=== PATIENT | male | born 1940 | race Caucasian/White ===

== ENCOUNTER 2018-05-20 15:24 | Emergency (ER) | payer MEDICARE ==
[2018-05-20] MEDS ORDERED: diltiaZEM INJ 5 MG/ML VIAL IVP STA (15:41)
--- NOTE | 2018-05-20 15:44 | ED Physician Documentation ---
PD HPI CHEST PAIN - Stated complaint Stated Complaint: FAST HEART - Chief complaint Chief Complaint: Cardiac - History obtained from History obtained from: Patient - History of Present Illness Timing - onset: Other (He has a remote history of atrial fibrillation. Starting 3-4 days ago he has been having rapid heartbeat and he feels fatigued with some chest and neck pressure but no shortness of breath or pedal edema. He was seen at onset in the [place] and prescribed metoprolol and given a referral to Dr. Bejarano in [place], he has an appointment on the . The metoprolol has not been helpful for his symptoms.) Review of Systems Constitutional: reports: Fatigue. denies: Fever, Chills Nose: denies: Rhinorrhea / runny nose, Congestion Cardiac: reports: Chest pain / pressure, Palpitations. denies: Pedal edema, Calf pain Respiratory: denies: Dyspnea, Cough PD PAST MEDICAL HISTORY - Past Medical History Cardiovascular: High cholesterol, [place] : Benign prostate hypertrophy - Past Surgical History Past Surgical History: Yes Ortho: Knee replacement - Present Medications Home Medications: Ambulatory Orders Medication Instructions Recorded Confirmed Aspirin [Aspir 81] 81 mg PO DAILY 03/05/14 03/05/14 Metoprolol Tartrate 05/20/18 Rivaroxaban [Xarelto] 20 mg PO DAILY #30 tablet 05/20/18 diltiaZEM CD [Cardizem Cd] 180 mg PO DAILY #30 capsule 05/20/18 - Allergies Allergies/Adverse Reactions: Allergies Allergy/AdvReac Type Severity Reaction Status Date / Time No Known Drug Allergies Allergy Verified 05/20/18 15:33 - Social History Does the pt smoke?: No Smoking Status: Former smoker Does the pt drink ETOH?: Yes Does the pt have substance abuse?: No - Family History Family history: reports: Non contributory - POLST Patient has POLST: No PD ED PE NORMAL - Vitals Vital signs reviewed: Yes - General General: Alert and oriented X 3, No acute distress - HEENT HEENT: PERRL, EOMI - Neck Neck: Supple, no meningeal sign, No bony TTP - Cardiac Cardiac: Other (Rapid and irregular) - Respiratory Respiratory: No respiratory distress, Clear bilaterally - Abdomen Abdomen: Non tender - Back Back: No CVA TTP, No spinal TTP - Derm Derm: Normal color, Warm and dry - Neuro Neuro: Alert and oriented X 3, Normal speech - Psych Psych: Normal mood, Normal affect Results - Vitals Vitals: Vital Signs - 24 hr 05/20/18 05/20/18 05/20/18 15:29 15:51 15:58 Temperature 37.2 C Heart Rate 130 H 135 H 110 H Respiratory 14 17 16 Rate Blood Pressure 165/115 H 105/90 H 126/81 H O2 Saturation 100 98 126 H Oxygen O2 Source Room air - EKG (time done) 1531 Rate: Rate (enter#) (116) Rhythm: Atrial flutter, Atrial fibrillation [place]: Normal QRS: Normal Ischemia: Non specific changes Computer interpretation: Agree with computer - Labs Labs: Laboratory Tests 05/20/18 05/20/18 05/20/18 15:47 15:47 15:47 WBC 7.8 RBC 4.55 L Hgb 15.3 Hct 45.8 MCV 100.8 H MCH 33.6 H MCHC 33.3 RDW 13.3 Plt Count 199 MPV 9.6 Neut # (Auto) 4.4 Lymph # (Auto) 2.4 [place] # (Auto) 0.9 Eos # (Auto) 0.1 Baso # (Auto) 0.1 Absolute Nucleated RBC 0.00 Nucleated RBC % 0.0 Sodium 137 Potassium 4.6 Chloride 106 Carbon Dioxide 21 Anion Gap 10.0 BUN 20 Creatinine 1.0 Estimated GFR (MDRD) 72 L Glucose 108 H Calcium 9.0 Magnesium 2.3 Total Bilirubin 0.7 AST 26 ALT 18 Alkaline Phosphatase 51 Troponin I < 0.04 Total Protein 7.6 Albumin 4.1 Globulin 3.5 Albumin/Globulin Ratio 1.2 Lipase 32 TSH 05/20/18 15:47 WBC RBC Hgb Hct MCV MCH MCHC RDW Plt Count MPV Neut # (Auto) Lymph # (Auto) [place] # (Auto) Eos # (Auto) Baso # (Auto) Absolute Nucleated RBC Nucleated RBC % Sodium Potassium Chloride Carbon Dioxide Anion Gap BUN Creatinine Estimated GFR (MDRD) Glucose Calcium Magnesium Total Bilirubin AST ALT Alkaline Phosphatase Troponin I Total Protein Albumin Globulin Albumin/Globulin Ratio Lipase TSH 1.85 PD MEDICAL DECISION MAKING - ED course ED course: 77-year-old gentleman presents with rapid and symptomatic atrial fibrillation. He was started on metoprolol a few days ago in the clinic which is not been helpful. He is not anticoagulated except for aspirin and therefore without AMAURI would probably not be considered safe to pursue right primary rhythm control. He was administered diltiazem IV. Echo from January 2015 on the chart was reviewed, normal systolic function with an EF of 55%. Mild to moderate MR, mild with trace AR. Aortic valve area 1.5 cm. After the administration of 10 mg of diltiazem IV his heart rate was about 80 and he was feeling better without hypotension. Case discussed by phone with Dr. Dao Sanchez, cardiology in [place] who agreed with starting Xarelto and Cardizem and they will see him in the clinic. Departure - Departure Disposition: Home, Self Care Clinical Impression: Atrial fibrillation Qualifiers: Atrial fibrillation type: paroxysmal Qualified Code(s): I48.0 - Paroxysmal atrial fibrillation Condition: Good Record reviewed to determine appropriate education?: Yes Instructions: Atrial Fibrillation Dc Prescriptions: diltiaZEM CD [Cardizem Cd] 180 mg PO DAILY #30 capsule Rivaroxaban [Xarelto] 20 mg PO DAILY #30 tablet Comments: Return for new or worsening symptoms. Follow-up with a lap cutter truer operator in [place] as scheduled. I would recommend not eating or drinking after midnight the night prior in case they decide that a procedure is warranted on that date.
[2018-05-20 15:56] LABS: BASOPHILS # (AUTO) 0.1 10^3/uL (0.0-0.1); BASOPHILS % (AUTO) 1.1 %; EOSINOPHILS # (AUTO) 0.1 10^3/uL (0.0-0.7); HGB - HEMOGLOBIN 15.3 g/dL (14.0-18.0); LYMPHOCYTES # (AUTO) 2.4 10^3/uL (1.5-3.5); LYMPHOCYTES % (AUTO) 31.2 %; MEAN CORPUSCULAR HEMOGLOBIN 33.6 pg (27.0-31.0); MEAN CORPUSCULAR HGB CONC 33.3 g/dL (32.0-36.0); MEAN CORPUSCULAR VOLUME 100.8 fL (80.0-94.0); MEAN PLATELET VOLUME 9.6 fL (7.4-11.4); MONOCYTES # (AUTO) 0.9 10^3/uL (0.0-1.0); MONOCYTES % (AUTO) 11.1 %; NEUTROPHILS # (AUTO) 4.4 10^3/uL (1.5-6.6); NEUTROPHILS % (AUTO) 55.6 %; PLT - PLATELET COUNT 199 10^3/uL (130-450); RED BLOOD COUNT 4.55 10^6/uL (4.70-6.10); RED CELL DISTRIBUTION WIDTH 13.3 % (12.0-15.0); WHITE BLOOD COUNT 7.8 x10^3/uL (4.8-10.8)
[2018-05-20 16:14] LABS: ALBUMIN 4.1 g/dL (3.2-5.5); ALBUMIN/GLOBULIN RATIO 1.2 (1.0-2.2); BILIRUBIN,TOTAL 0.7 mg/dL (0.2-1.0); MAGNESIUM 2.3 mg/dL (1.7-2.8); TOTAL PROTEIN 7.6 g/dL (6.7-8.2)
[2018-05-20 16:52] VITALS: BP 125/98
== END 2018-05-20 16:58 | disposition home or self-care (01) ==
LOC: ED 15:24
DX: I48.0 Paroxysmal atrial fibrillation (principal); Z79.82 Long term (current) use of aspirin; Z86.79 Personal history of other diseases of the circulatory system; Z87.891 Personal history of nicotine dependence
CPT/HCPCS: 36415; 80053; 83690; 83735; 84443; 84484; 85025; 93005; 96374; 99283; 99284

== ENCOUNTER 2019-03-17 10:34 | Outpatient (CLI) | payer MEDICARE ==
[2019-03-17 18:55] LABS: BASOPHILS # (AUTO) 0.1 10^3/uL (0.0-0.1); BASOPHILS % (AUTO) 0.9 %; EOSINOPHILS # (AUTO) 0.2 10^3/uL (0.0-0.7); EOSINOPHILS % (AUTO) 2.2 %; HGB - HEMOGLOBIN 9.7 g/dL (14.0-18.0); LYMPHOCYTES # (AUTO) 1.4 10^3/uL (1.5-3.5); LYMPHOCYTES % (AUTO) 21.1 %; MEAN CORPUSCULAR HEMOGLOBIN 29.6 pg (27.0-31.0); MEAN CORPUSCULAR HGB CONC 31.3 g/dL (32.0-36.0); MEAN CORPUSCULAR VOLUME 94.5 fL (80.0-94.0); MEAN PLATELET VOLUME 11.6 fL (7.4-11.4); MONOCYTES # (AUTO) 0.9 10^3/uL (0.0-1.0); MONOCYTES % (AUTO) 13.5 %; NEUTROPHILS # (AUTO) 4.3 10^3/uL (1.5-6.6); NEUTROPHILS % (AUTO) 62.2 %; PLT - PLATELET COUNT 264 10^3/uL (130-450); RED BLOOD COUNT 3.28 10^6/uL (4.70-6.10); RED CELL DISTRIBUTION WIDTH 15.3 % (12.0-15.0); WHITE BLOOD COUNT 6.8 x10^3/uL (4.8-10.8)
[2019-03-17 19:38] LABS: ALBUMIN 4.4 g/dL (3.2-5.5); ALBUMIN/GLOBULIN RATIO 1.5 (1.0-2.2); ALKALINE PHOSPHATASE 50 IU/L (42-121); ALT ALANINE AMINOTRANSFERASE 21 IU/L (10-60); AST ASPARTATE AMINOTRANSFERASE 26 IU/L (10-42); BILIRUBIN,TOTAL 0.6 mg/dL (0.2-1.0); BUN - BLOOD UREA NITROGEN 18 mg/dL (6-20); CALCIUM 9.3 mg/dL (8.5-10.3); CARBON DIOXIDE - CO2 29 mmol/L (21-32); CHLORIDE 106 mmol/L (101-111); CHOL/HDL RATIO 3.5 (<5.0); CHOLESTEROL 218 mg/dL; CREATININE 1.1 mg/dL (0.6-1.2); GFR - MDRD 65 (>89); GLUCOSE 106 mg/dL (70-100); HDL CHOLESTEROL 62 mg/dL; LDL CHOLESTEROL,CALCULATED 142 mg/dL; LDL/HDL RATIO 2.3 (<3.6); SODIUM 141 mmol/L (135-145); TOTAL PROTEIN 7.4 g/dL (6.7-8.2); VLDL CHOLESTEROL 14 mg/dL
== END 2019-03-17 10:35 | disposition home or self-care (01) ==
LOC: LAB.S 10:34
PROVIDERS: ATTEND Internal Medicine
DX: E78.5 Hyperlipidemia, unspecified (principal); Z79.01 Long term (current) use of anticoagulants; I48.0 Paroxysmal atrial fibrillation
CPT/HCPCS: 36415; 80053; 80061; 83721; 85025

== ENCOUNTER 2019-03-24 11:23 | Outpatient (CLI) | payer MEDICARE ==
[2019-03-24 17:51] LABS: ABSOLUTE RETICS # AUTO 0.087 10^6/uL (0.020-0.110); BASOPHILS # (AUTO) 0.1 10^3/uL (0.0-0.1); BASOPHILS % (AUTO) 0.8 %; EOSINOPHILS # (AUTO) 0.2 10^3/uL (0.0-0.7); EOSINOPHILS % (AUTO) 2.6 %; HGB - HEMOGLOBIN 9.5 g/dL (14.0-18.0); LYMPHOCYTES # (AUTO) 1.9 10^3/uL (1.5-3.5); LYMPHOCYTES % (AUTO) 24.3 %; MEAN CORPUSCULAR HEMOGLOBIN 28.4 pg (27.0-31.0); MEAN CORPUSCULAR HGB CONC 30.5 g/dL (32.0-36.0); MEAN CORPUSCULAR VOLUME 92.8 fL (80.0-94.0); MEAN PLATELET VOLUME 11.3 fL (7.4-11.4); MONOCYTES # (AUTO) 0.9 10^3/uL (0.0-1.0); MONOCYTES % (AUTO) 11.3 %; NEUTROPHILS # (AUTO) 4.6 10^3/uL (1.5-6.6); NEUTROPHILS % (AUTO) 60.6 %; PLT - PLATELET COUNT 277 10^3/uL (130-450); RED BLOOD COUNT 3.35 10^6/uL (4.70-6.10); RED CELL DISTRIBUTION WIDTH 15.2 % (12.0-15.0); WHITE BLOOD COUNT 7.6 x10^3/uL (4.8-10.8)
[2019-03-24 18:39] LABS: FERRITIN 8.7 ng/mL (23.9-336.2)
[2019-03-24 18:42] LABS: FOLATE 19.31 ng/mL (5.90 - >24.8)
[2019-03-24 18:44] LABS: % IRON SATURATION 4 % (20-50); IRON 20 ug/dL (45-182); TOTAL IRON BINDING CAPACITY 465 ug/dL (250-450); TRANSFERRIN 332 mg/dL (180-329)
== END 2019-03-24 11:24 | disposition home or self-care (01) ==
LOC: LAB.S 11:23
PROVIDERS: ATTEND Internal Medicine
DX: D64.9 Anemia, unspecified (principal)
CPT/HCPCS: 36415; 82607; 82728; 82746; 83540; 84466; 85025; 85045

== ENCOUNTER 2019-06-16 14:03 | Outpatient (CLI) | payer MEDICARE ==
[2019-06-16 17:45] LABS: BASOPHILS # (AUTO) 0.1 10^3/uL (0.0-0.1); BASOPHILS % (AUTO) 0.6 %; EOSINOPHILS # (AUTO) 0.2 10^3/uL (0.0-0.7); EOSINOPHILS % (AUTO) 2.1 %; HGB - HEMOGLOBIN 13.2 g/dL (14.0-18.0); LYMPHOCYTES # (AUTO) 2.4 10^3/uL (1.5-3.5); LYMPHOCYTES % (AUTO) 28.1 %; MEAN CORPUSCULAR HEMOGLOBIN 30.6 pg (27.0-31.0); MEAN CORPUSCULAR HGB CONC 31.4 g/dL (32.0-36.0); MEAN CORPUSCULAR VOLUME 97.5 fL (80.0-94.0); MEAN PLATELET VOLUME 11.5 fL (7.4-11.4); MONOCYTES # (AUTO) 0.9 10^3/uL (0.0-1.0); MONOCYTES % (AUTO) 10.3 %; NEUTROPHILS # (AUTO) 5.1 10^3/uL (1.5-6.6); NEUTROPHILS % (AUTO) 58.6 %; PLT - PLATELET COUNT 234 10^3/uL (130-450); RED BLOOD COUNT 4.32 10^6/uL (4.70-6.10); RED CELL DISTRIBUTION WIDTH 15.9 % (12.0-15.0); WHITE BLOOD COUNT 8.6 x10^3/uL (4.8-10.8)
[2019-06-16 18:53] LABS: % IRON SATURATION 17 % (20-50); IRON 64 ug/dL (45-182); TOTAL IRON BINDING CAPACITY 378 ug/dL (250-450); TRANSFERRIN 270 mg/dL (180-329)
== END 2019-06-16 14:04 | disposition home or self-care (01) ==
LOC: LAB.S 14:03
PROVIDERS: ATTEND Internal Medicine Gastroenterology
DX: D50.9 Iron deficiency anemia, unspecified (principal)
CPT/HCPCS: 36415; 82728; 83540; 84466; 85025

== ENCOUNTER 2020-10-07 11:03 | Outpatient (CLI) | payer MEDICARE ==
[2020-10-07 15:10] LABS: BASOPHILS # (AUTO) 0.1 10^3/uL (0.0-0.1); BASOPHILS % (AUTO) 0.7 %; EOSINOPHILS # (AUTO) 0.2 10^3/uL (0.0-0.7); EOSINOPHILS % (AUTO) 2.1 %; HCT - HEMATOCRIT 37.2 % (42.0-52.0); HGB - HEMOGLOBIN 11.2 g/dL (14.0-18.0); LYMPHOCYTES # (AUTO) 1.6 10^3/uL (1.5-3.5); LYMPHOCYTES % (AUTO) 21.6 %; MEAN CORPUSCULAR HEMOGLOBIN 28.1 pg (27.0-31.0); MEAN CORPUSCULAR HGB CONC 30.1 g/dL (32.0-36.0); MEAN CORPUSCULAR VOLUME 93.2 fL (80.0-94.0); MEAN PLATELET VOLUME 11.9 fL (7.4-11.4); MONOCYTES # (AUTO) 0.6 10^3/uL (0.0-1.0); MONOCYTES % (AUTO) 8.6 %; NEUTROPHILS # (AUTO) 4.8 10^3/uL (1.5-6.6); NEUTROPHILS % (AUTO) 66.7 %; PLT - PLATELET COUNT 279 10^3/uL (130-450); RED BLOOD COUNT 3.99 10^6/uL (4.70-6.10); RED CELL DISTRIBUTION WIDTH 17.7 % (12.0-15.0); WHITE BLOOD COUNT 7.2 x10^3/uL (4.8-10.8)
[2020-10-07 15:38] LABS: ALBUMIN 4.5 g/dL (3.2-5.5); ALBUMIN/GLOBULIN RATIO 1.4 (1.0-2.2); BILIRUBIN,TOTAL 0.8 mg/dL (0.2-1.0); CALCIUM 9.4 mg/dL (8.5-10.3); CREATININE 1.4 mg/dL (0.6-1.2); POTASSIUM 4.1 mmol/L (3.5-5.0); TOTAL PROTEIN 7.7 g/dL (6.7-8.2)
== END 2020-10-07 11:04 | disposition home or self-care (01) ==
LOC: LAB.S 11:03
PROVIDERS: ATTEND Internal Medicine
DX: D50.9 Iron deficiency anemia, unspecified (principal); E78.5 Hyperlipidemia, unspecified
CPT/HCPCS: 36415; 80053; 82728; 85025

== ENCOUNTER 2020-10-21 16:41 | Outpatient (CLI) | payer MEDICARE | END 2020-10-21 16:42 | disposition home or self-care (01) | LOC: COV 16:41 | PROVIDERS: ATTEND Internal Medicine Cardiovascular Disease | DX: Z01.812 Encounter for preprocedural laboratory examination (principal); Z20.822 Contact with and (suspected) exposure to COVID-19 ==

== ENCOUNTER 2020-11-20 08:09 | Emergency (ER) | payer MEDICARE ==
[2020-11-20] MEDS ORDERED: SODIUM CHLORIDE 0.9% 1,000 ML IV STA (09:29)
--- NOTE | 2020-11-20 09:34 | ED Physician Documentation ---
PD HPI LOWER EXT INJURY - Stated complaint Stated Complaint: CONVULSIONS/GLF/LT FOOT INJ - Chief complaint Chief Complaint: Ext Problem - History obtained from History obtained from: Patient, Family - History of Present Illness PD HPI LOW EXT INJURY LOCATION: Left, Lower leg, Ankle Type of injury: Fall, Twist Where injury occurred: Home Timing - onset: Today Timing - duration: Minutes Timing - details: Abrupt onset, Still present Improved by: Rest, Immobilization Worsened by: Moving, Palpating Associated symptoms: Swelling. No: Weakness, Numbness, Tingling, Discolored Contributing factors: Anticoagulated Similar symptoms before: Has not had sx before Recently seen: Other - Additional information Additional information: 80-year-old male who has begun to have some problems with his heart has developed atrial fibrillation he was seen in a hospital in [facility] at the beginning of October hospitalized with failure and A. fib with RVR. He is on Eliquis and amiodarone and yesterday he went into [facility] to have a CT scan done in preparation for placement of an aortic valve for aortic stenosis. The patient was in his home this morning when he had choreal choreiform movements of his upper and lower extremities and fell to the ground. He said this lasted about a minute and was not associated with loss of consciousness. He describes the flailing of his arms and not rhythmic contractions. He denies chills he denies fever.He has not had any new medications. He did spend the day down at [facility] yesterday. He has been urinating more than usual. He states he believes this is because he was drinking more water yesterday. Review of Systems Constitutional: denies: Fever Eyes: denies: Decreased vision Ears: denies: Ear pain Nose: denies: Congestion Throat: denies: Sore throat Cardiac: denies: Chest pain / pressure, Palpitations Respiratory: denies: Dyspnea, Cough GI: denies: Abdominal Pain, Nausea, Constipation, Diarrhea : reports: Frequency. denies: Dysuria Skin: denies: Rash Musculoskeletal: reports: Extremity pain, Joint pain, Extremity swelling, Joint swelling, Pain with weight bearing. denies: Neck pain, Back pain Neurologic: denies: Generalized weakness, Focal weakness, Numbness PD PAST MEDICAL HISTORY - Past Medical History Past Medical History: Yes Cardiovascular: High cholesterol, Coronary artery disease, [place], Atrial fibrillation, Valve disorder Respiratory: None Neuro: None Endocrine/Autoimmune: None GI: GERD : Benign prostate hypertrophy HEENT: Chronic hearing loss Psych: None Musculoskeletal: Chronic back pain Derm: None - Past Surgical History Past Surgical History: Yes Ortho: Knee replacement, Spine surgery - Present Medications Home Medications: Ambulatory Orders Medication Instructions Recorded Confirmed Amiodarone [Pacerone] 200 mg PO DAILY 11/20/20 11/20/20 Apixaban [Eliquis] 2.5 mg PO BID 11/20/20 11/20/20 Atorvastatin Calcium 40 mg PO HS 11/20/20 11/20/20 Clopidogrel [Plavix] 75 mg PO DAILY 11/20/20 11/20/20 Ferrous Sulfate 325 mg PO DAILY 11/20/20 11/20/20 Furosemide [Lasix] 20 mg PO DAILY 11/20/20 11/20/20 HYDROcod/ACETAM 5/325 [[place] 5/325] 1 - 2 tablet PO Q6H PRN #14 tablet 11/20/20 Spironolactone [Aldactone] 25 mg PO DAILY 11/20/20 11/20/20 carvediloL [Coreg] 3.125 mg PO BID 11/20/20 11/20/20 - Allergies Allergies/Adverse Reactions: Allergies Allergy/AdvReac Type Severity Reaction Status Date / Time No Known Drug Allergies Allergy Verified 11/20/20 08:27 - Social History Does the pt smoke?: No Smoking Status: Former smoker Does the pt drink ETOH?: Yes ETOH Use: Wine Does the pt have substance abuse?: No - Immunizations Immunizations are current?: Yes - POLST Patient has POLST: No PD ED PE NORMAL - Vitals Vital signs reviewed: Yes (hypotensive ) - General General: Alert and oriented X 3, No acute distress, Well developed/nourished - HEENT HEENT: Atraumatic, PERRL, EOMI - Neck Neck: Supple, no meningeal sign, No bony TTP - Cardiac Cardiac: Other (irregularly irregular rate and rhythm with 2/6 holosystolic blowing murmer at LSB) - Respiratory Respiratory: No respiratory distress, Clear bilaterally - Abdomen Abdomen: Normal bowel sounds, Soft, Non tender, Non distended, No organomegaly - Derm Derm: Normal color, Warm and dry, No rash - Extremities Extremities: No deformity, Other (There is swelling and point tenderness to the left ankle to both the medial and lateral malleolus. There is some tenderness to the proximal fibula on the left side as well. The knee is not swollen. Distal neurovascular components intact.) - Neuro Neuro: Alert and oriented X 3, boiling tub operator 2-12 intact, No motor deficit, No sensory deficit, Normal speech Eye Opening: Spontaneous Motor: Obeys Commands Verbal: Oriented GCS Score: 15 - Psych Psych: Normal mood, Normal affect Results - Vitals Vitals: Vital Signs - 24 hr 11/20/20 11/20/20 08:18 08:40 Temperature 36.4 C L Heart Rate 80 90 Respiratory 17 18 Rate Blood Pressure 86/50 L 124/87 H O2 Saturation 96 100 Oxygen O2 Source Room air - EKG (time done) 0930 Rate: Rate (enter#) (84) Rhythm: Atrial fibrillation [place]: LAD Ischemia: Non specific changes (ST dep T neg lateral mild ) Compare to prior EKG: Changed from prior EKG (SPT 05-20-2018 rate has decreased) Computer interpretation: Agree with computer - Labs Labs: Laboratory Tests 11/20/20 11/20/20 11/20/20 08:45 08:45 08:45 WBC 9.9 RBC 3.94 L Hgb 11.6 L Hct 36.2 L MCV 91.9 MCH 29.4 MCHC 32.0 RDW 18.5 H Plt Count 221 MPV 11.4 Neut # (Auto) 8.1 H Lymph # (Auto) 0.9 L [place] # (Auto) 0.6 Eos # (Auto) 0.2 Baso # (Auto) 0.1 Absolute Nucleated RBC 0.00 Nucleated RBC % 0.0 Sodium 139 Potassium 4.3 Chloride 101 Carbon Dioxide 28 Anion Gap 10.0 BUN 24 H Creatinine 1.4 H Estimated GFR (MDRD) 49 L Glucose 124 H Calcium 9.7 Total Bilirubin 0.5 AST 23 ALT 24 Alkaline Phosphatase 61 Troponin I High Sens B-Natriuretic Peptide 330 H Total Protein 7.4 Albumin 4.2 Globulin 3.2 Albumin/Globulin Ratio 1.3 Lipase 29 11/20/20 08:45 WBC RBC Hgb Hct MCV MCH MCHC RDW Plt Count MPV Neut # (Auto) Lymph # (Auto) [place] # (Auto) Eos # (Auto) Baso # (Auto) Absolute Nucleated RBC Nucleated RBC % Sodium Potassium Chloride Carbon Dioxide Anion Gap BUN Creatinine Estimated GFR (MDRD) Glucose Calcium Total Bilirubin AST ALT Alkaline Phosphatase Troponin I High Sens 9.4 B-Natriuretic Peptide Total Protein Albumin Globulin Albumin/Globulin Ratio Lipase - Rads (name of study) ankle L Radiology: Prelim report reviewed (Impression: 1. Comminuted distal fibular fracture with slight widening of the syndesmosis. Mildly displaced medial malleolar fracture.), EMP read indepedently, See rad report tb/fib L Radiology: Prelim report reviewed, EMP read indepedently, See rad report Chest Radiology: Prelim report reviewed (Impression: No acute pulmonary process.), EMP read indepedently, See rad report Procedures - IVC sono (time) 0930 Bedside IVC sono: IVC measures (cm) (1.2), IVC collapsed c insp (cm) (conmplete), Dehydration (est 1 liter deficit) PD MEDICAL DECISION MAKING - ED course Complexity details: reviewed old records, reviewed results, re-evaluated patient, considered differential, d/w patient, d/w family ED course: 80-year-old male with a history of atrial fibrillation and aortic stenosis has had an episode of choreiform-like movements today without specific explanation. During this episode he fell and injured his left ankle. He has a bimalleolar fracture. He is placed into a posterior and stirrup splint and onto crutches and he will seek orthopedic consultation this week through [facility]. We did do a work-up to uncover any obvious potential causes of the choreiform movements. We did find the patient was mildly mildly dehydrated on interrogat ion the inferior vena cava and he is administered a liter of saline. He was also given Dilaudid and Zofran for pain control. We did not discover any obvious abnormalities to the patient's blood work or physical examination that would account for choreiform movement. Departure - Departure Disposition: 01 Home, Self Care Clinical Impression: Choreiform movements Bimalleolar ankle fracture Qualifiers: Encounter type: initial encounter Fracture type: closed Laterality: left Qualified Code(s): S82.842A - Displaced bimalleolar fracture of left lower leg, initial encounter for closed fracture Condition: Stable Instructions: ED Fx Lower Ext, ED Splint Care Fiberglass Follow-Up: Damir Castillo MD [Primary Care Provider] - Prescriptions: HYDROcod/ACETAM 5/325 [[place] 5/325] 1 - 2 tablet PO Q6H PRN #14 tablet PRN Reason: Pain Comments: There is an ankle fracture on the left side that will require orthopedic consultation. Call the orthopedist office today to make the next available appointment. This fracture will likely need a surgery and this will likely need to be done within the next week to 10 days.
[2020-11-20 09:36] LABS: BASOPHILS # (AUTO) 0.1 10^3/uL (0.0-0.1); BASOPHILS % (AUTO) 0.6 %; EOSINOPHILS # (AUTO) 0.2 10^3/uL (0.0-0.7); EOSINOPHILS % (AUTO) 1.5 %; HCT - HEMATOCRIT 36.2 % (42.0-52.0); HGB - HEMOGLOBIN 11.6 g/dL (14.0-18.0); LYMPHOCYTES # (AUTO) 0.9 10^3/uL (1.5-3.5); LYMPHOCYTES % (AUTO) 8.7 %; MEAN CORPUSCULAR HEMOGLOBIN 29.4 pg (27.0-31.0); MEAN CORPUSCULAR VOLUME 91.9 fL (80.0-94.0); MEAN PLATELET VOLUME 11.4 fL (7.4-11.4); MONOCYTES # (AUTO) 0.6 10^3/uL (0.0-1.0); MONOCYTES % (AUTO) 6.5 %; NEUTROPHILS # (AUTO) 8.1 10^3/uL (1.5-6.6); NEUTROPHILS % (AUTO) 82.3 %; PLT - PLATELET COUNT 221 10^3/uL (130-450); RED BLOOD COUNT 3.94 10^6/uL (4.70-6.10); RED CELL DISTRIBUTION WIDTH 18.5 % (12.0-15.0); WHITE BLOOD COUNT 9.9 x10^3/uL (4.8-10.8)
[2020-11-20 09:49] LABS: ALBUMIN 4.2 g/dL (3.2-5.5); ALBUMIN/GLOBULIN RATIO 1.3 (1.0-2.2); BILIRUBIN,TOTAL 0.5 mg/dL (0.2-1.0); CALCIUM 9.7 mg/dL (8.5-10.3); CREATININE 1.4 mg/dL (0.6-1.2); POTASSIUM 4.3 mmol/L (3.5-5.0); TOTAL PROTEIN 7.4 g/dL (6.7-8.2)
[2020-11-20] MEDS ORDERED: ONDANSETRON 4 MG/2 ML VIAL IVP STA (09:59)
[2020-11-20] MEDS ORDERED: HYDROmorphone 1 MG/ML CARPUJECT IVP STA (09:59)
--- NOTE | 2020-11-20 10:04 | XRAY Report ---
PROCEDURE: Chest 1 View X-Ray INDICATIONS: shaking chills TECHNIQUE: One view of the chest was acquired. COMPARISON: none FINDINGS: Surgical changes and devices: None. Lungs and pleura: No pleural effusions or pneumothorax. Lungs are clear. Mediastinum: Mediastinal contours appear normal. Heart size is enlarged. Bones and chest wall: No suspicious bony lesions. Overlying soft tissues appear unremarkable. IMPRESSION: No acute pulmonary process. Reviewed by: Triny Ocampo MD on 11/20/2020 10:03 AM PDT Approved by: Triny Ocampo MD on 11/20/2020 10:03 AM PDT Station ID: [id number]
--- NOTE | 2020-11-20 10:06 | XRAY Report ---
PROCEDURE: Tib/Fib LT INDICATIONS: fall proximal calf pain TECHNIQUE: 2 views of the tibia and fibula were acquired. COMPARISON: none FINDINGS: Bones: Mildly displaced distal fibular diaphyseal fracture, not completely included in the field of view. No suspicious bony lesions. Knee arthroplasty is present. Hardware is intact. Soft tissues: No suspicious soft tissue calcifications or masses. IMPRESSION: Incompletely visualized mildly displaced distal fibular fracture. Xray ankle is recommended for furt her evaluation. Reviewed by: Triny Ocampo MD on 11/20/2020 10:05 AM PDT Approved by: Triny Ocampo MD on 11/20/2020 10:05 AM PDT Station ID: [id number]
--- NOTE | 2020-11-20 10:10 | XRAY Report ---
PROCEDURE: Ankle 3 View LT INDICATIONS: fall bimalleolar tenderness TECHNIQUE: 3 views of the ankle were acquired. COMPARISON: Xray TIb Fib 11/20/20 FINDINGS: Bones: Comminuted distal diaphyseal fracture. There is slight widening at the syndesmosis. There i s a mildly displaced medial malleolar fracture. Ankle mortise is normally aligned. No suspicious bon y lesions. Soft tissues: Ankle edema is present. Achilles tendon appears normal. IMPRESSION: 1. Comminuted distal fibular fracture with slight widening of syndemosis. 2. Mildly displaced medial malleolar fracture. Reviewed by: Triny Ocampo MD on 11/20/2020 10:08 AM PDT Approved by: Triny Ocampo MD on 11/20/2020 10:08 AM PDT Station ID: [id number]
[2020-11-20 10:59] VITALS: BP 101/75
== END 2020-11-20 11:44 | disposition home or self-care (01) ==
LOC: ED 08:09
DX: G25.5 Other chorea (principal); S82.842A Displaced bimalleolar fracture of left lower leg, initial encounter for closed fracture; S82.832A Other fracture of upper and lower end of left fibula, initial encounter for closed fracture; W18.39XA Other fall on same level, initial encounter; Y92.009 Unspecified place in unspecified non-institutional (private) residence as the place of occurrence of the external cause; E86.0 Dehydration; I95.9 Hypotension, unspecified; I35.0 Nonrheumatic aortic (valve) stenosis; I48.91 Unspecified atrial fibrillation; Z79.01 Long term (current) use of anticoagulants; Z79.02 Long term (current) use of antithrombotics/antiplatelets; R35.0 Frequency of micturition; Z87.891 Personal history of nicotine dependence
CPT/HCPCS: 29515; 36415; 71045; 73590; 73610; 80053; 83690; 83880; 84484; 85025; 93005; 96361; 96374; 96375; 99284; J1170

== ENCOUNTER 2020-11-26 19:29 | Outpatient (CLI) | payer MEDICARE | END 2020-11-26 19:30 | disposition home or self-care (01) | LOC: COV 19:29 | DX: Z01.812 Encounter for preprocedural laboratory examination (principal); Z20.822 Contact with and (suspected) exposure to COVID-19 ==

== ENCOUNTER 2020-12-27 19:25 | Outpatient (CLI) | payer MEDICARE | END 2020-12-27 19:26 | disposition EMS.NT | LOC: EMS 19:25 | DX: R55 Syncope and collapse (principal) ==

== ENCOUNTER 2022-10-21 19:33 | Outpatient (CLI) | payer MEDICARE | END 2022-10-21 23:59 | disposition critical access hospital (66) | LOC: EMS 19:33 | DX: R42 Dizziness and giddiness (principal); R56.9 Unspecified convulsions | CPT/HCPCS: A0425; A0429 ==

== ENCOUNTER 2022-10-21 20:09 | Emergency (ER) | payer MEDICARE ==
--- NOTE | 2022-10-21 20:29 | ED Physician Documentation ---
History of Present Illness - Stated complaint Stated Complaint: SYNCOPE - Chief complaint Chief Complaint: Cardiac - History obtained from History obtained from: Patient, Family () - Additonal information Additional information: 82-year-old man with history of coronary artery disease status post stent, TAVR, A-fib on Eliquis and metoprolol, presents with syncopal episode tonight while sitting at the dinner table. Patient states that he was eating dinner and then felt a sudden loss of control of his body his arm started moving spontaneously and then he describes a sensation of blackness. states that he simply slumped in the chair but did not hit his head or injure himself in any way. He states this is similar to an episode he had 1 month ago and a year and a half ago which were worked up without any obvious cause. states that he was at hot today today and they spent a lot of time outside going for a long walk and he has not had much to drink. Echocardiogram performed 2 weeks ago was unchanged from previous. Regional Education Manager Dr. Boothe at [facility]. Note: EMS reported that the patient did not have orthostasis on scene but did have soft blood pressure of 90/60, heart rate 55-75 and A-fib. He was given 300 cc of normal saline in route. PD PAST MEDICAL HISTORY - Past Medical History Cardiovascular: High cholesterol, Coronary artery disease, [place], Atrial fibrillation, Valve disorder Respiratory: None Neuro: None Endocrine/Autoimmune: None GI: GERD : Benign prostate hypertrophy HEENT: Chronic hearing loss Psych: None Musculoskeletal: Chronic back pain Derm: None - Past Surgical History Past Surgical History: Yes Ortho: Knee replacement, Spine surgery - Present Medications Home Medications: Ambulatory Orders Medication Instructions Recorded Confirmed Apixaban [Eliquis] 2.5 mg PO BID 11/20/20 10/21/22 Atorvastatin Calcium 80 mg PO HS 11/20/20 10/21/22 Ferrous Sulfate 325 mg PO DAILY 11/20/20 10/21/22 Furosemide [Lasix] 40 mg PO DAILY 11/20/20 10/21/22 Spironolactone [Aldactone] 25 mg PO DAILY 11/20/20 10/21/22 Metoprolol Succinate [Toprol Xl] 25 mg PO BID 10/21/22 10/21/22 - Allergies Allergies/Adverse Reactions: Allergies Allergy/AdvReac Type Severity Reaction Status Date / Time No Known Drug Allergies Allergy Verified 10/21/22 20:19 - Social History Does the pt smoke?: No Smoking Status: Former smoker Does the pt drink ETOH?: Yes Does the pt have substance abuse?: No - Immunizations Immunizations are current?: Yes - POLST Patient has POLST: No PD ED PE NORMAL - Vitals Vital signs reviewed: Yes - General General: Alert and oriented X 3, No acute distress, Well developed/nourished, Other (elderly appearing) - HEENT HEENT: Atraumatic, PERRL, EOMI - Neck Neck: Supple, no meningeal sign - Cardiac Cardiac: Other (regular rate, irregular rhythm) - Respiratory Respiratory: No respiratory distress, Clear bilaterally - Abdomen Abdomen: Non tender, Non distended - Derm Derm: Normal color, Warm and dry - Extremities Extremities: No deformity - Neuro Neuro: Alert and oriented X 3 - Psych Psych: Normal mood, Normal affect Results - Vitals Vitals: Vital Signs - 24 hr 10/21/22 10/21/22 10/21/22 20:13 20:24 20:49 Temperature 36.6 C Heart Rate 77 67 Respiratory 23 24 Rate Blood Pressure 113/75 95/72 O2 Saturation 96 98 98 Oxygen O2 Source Room air - EKG (time done) 2037 EKG releavant findings:: EKG personally interpreted by author of this note. Relevant findings are: Rate: Rate (enter#) (76) Rhythm: Atrial fibrillation QRS: Normal Ischemia: Other (abnormal R wave progression c/w old anteroseptal infarct) - Labs Labs: Laboratory Tests 10/21/22 10/21/22 10/21/22 20:33 20:33 20:33 WBC 6.3 RBC 3.90 L Hgb 13.2 L Hct 39.3 L MCV 100.8 H MCH 33.8 H MCHC 33.6 RDW 13.5 Plt Count 116 L MPV 11.8 H Neut # (Auto) 3.9 Lymph # (Auto) 1.3 L [place] # (Auto) 0.9 Eos # (Auto) 0.2 Baso # (Auto) 0.0 Absolute Nucleated RBC 0.00 Nucleated RBC % 0.0 Sodium 133 L Potassium 4.3 Chloride 103 Carbon Dioxide 25 Anion Gap 5.0 L BUN 35 H Creatinine 1.4 H Estimated GFR (MDRD) 49 L Glucose 90 Calcium 9.0 Total Bilirubin 0.5 AST 23 ALT 20 Alkaline Phosphatase 47 Troponin I High Sens 9.5 Total Protein 6.9 Albumin 3.8 Globulin 3.1 Albumin/Globulin Ratio 1.2 Lipase 31 PD Medical Decision Making - ED course ED course: 82-year-old man with extensive cardiac history presents with syncopal episode tonight with preceding symptoms. DDX includes vasovagal syncope, cardiac syncope, seizure. Given patient had no postictal period, no incontinence, no prior hx seizure, this is much less likely. CBC, abdominal panel, troponin, EKG, chest x-ray, ordered and patient was placed on the cafeteria monitor. Plan to follow-up these tests. CBC remarkable for hemoglobin of 13.2 with macrocytic anemia, improved from previous. Levels. Also with some mild thrombocytopenia with platelets of 116. Advised patient to follow-up with his primary care provider for recheck of CBC. He is showing signs of possible dehydration on chemistry with an elevated BUN/creatinine ratio of 35:1 0.4 and sodium of 133. Since he already received 300 cc of IV fluids with EMS and has a history of heart failure I advised further hydration orally at home and they were agreeable. Troponin negative. EKG looks benign. He does have signs of old ischemia on EKG and he is in A-fib that is rate controlled. His cardiac monitoring in the emergency department has been unremarkable. Chest x-ray by my interpretation and that of outside radiologist was no evidence of acute cardiac pulmonary disease. Plan to follow- up outpatient with his primary care provider and reagent tender helper. Return precautions given. Departure - Departure Disposition: 01 Home, Self Care Clinical Impression: Syncope Condition: Stable Instructions: ED Fainting Unkn Cause Comments: You were seen in the emergency department for a fainting episode. Your EKG, chest x-ray, and lab work uncovered no acute cause for your symptoms. You do have mildly low platelets on lab work and should have this rechecked by your primary care provider. We did see also that there are signs of mild dehydration and you really need to make sure you drink lots of water when you get home. Return to the emergency department if you have any new or worsening symptoms or other concerns.
[2022-10-21 20:40] LABS: BASOPHILS % (AUTO) 0.5 %; EOSINOPHILS # (AUTO) 0.2 10^3/uL (0.0-0.7); HCT - HEMATOCRIT 39.3 % (42.0-52.0); HGB - HEMOGLOBIN 13.2 g/dL (14.0-18.0); LYMPHOCYTES # (AUTO) 1.3 10^3/uL (1.5-3.5); LYMPHOCYTES % (AUTO) 20.4 %; MEAN CORPUSCULAR HEMOGLOBIN 33.8 pg (27.0-31.0); MEAN CORPUSCULAR HGB CONC 33.6 g/dL (32.0-36.0); MEAN CORPUSCULAR VOLUME 100.8 fL (80.0-94.0); MEAN PLATELET VOLUME 11.8 fL (7.4-11.4); MONOCYTES # (AUTO) 0.9 10^3/uL (0.0-1.0); MONOCYTES % (AUTO) 13.9 %; NEUTROPHILS # (AUTO) 3.9 10^3/uL (1.5-6.6); NEUTROPHILS % (AUTO) 61.9 %; PLT - PLATELET COUNT 116 10^3/uL (130-450); RED CELL DISTRIBUTION WIDTH 13.5 % (12.0-15.0); WHITE BLOOD COUNT 6.3 x10^3/uL (4.8-10.8)
[2022-10-21 20:52] LABS: ALBUMIN 3.8 g/dL (3.2-5.5); ALBUMIN/GLOBULIN RATIO 1.2 (1.0-2.2); BILIRUBIN,TOTAL 0.5 mg/dL (0.2-1.0); CREATININE 1.4 mg/dL (0.6-1.2); POTASSIUM 4.3 mmol/L (3.5-5.0); TOTAL PROTEIN 6.9 g/dL (6.7-8.2)
--- NOTE | 2022-10-21 21:02 | XRAY Report ---
PROCEDURE: Chest 1 View X-Ray INDICATIONS: Chest Pain TECHNIQUE: One view of the chest was acquired. COMPARISON: Chest x-ray 11/20/2020. FINDINGS: Surgical changes and devices: There is a prosthetic aortic valve. Lungs and pleura: No pleural effusions or pneumothorax. Lungs are clear. Mediastinum: Mediastinal contours appear normal. Heart size is normal. Bones and chest wall: No suspicious bony lesions. Overlying soft tissues appear unremarkable. IMPRESSION: No acute cardiopulmonary disease. Reviewed by: Demetri Ragland MD on 10/21/2022 9:00 PM PDT Approved by: Demetri Ragland MD on 10/21/2022 9:00 PM PDT Station ID: [id number]
[2022-10-21 21:37] VITALS: BP 90/52
== END 2022-10-21 21:35 | disposition home or self-care (01) ==
LOC: EDUNIT# → ED 20:09
DX: R55 Syncope and collapse (principal); I48.91 Unspecified atrial fibrillation; Z79.01 Long term (current) use of anticoagulants; Z87.891 Personal history of nicotine dependence
CPT/HCPCS: 36415; 80053; 83690; 84484; 85025; 93005; 99283; 99284

== ENCOUNTER 2023-04-24 11:50 | Outpatient (CLI) | payer MEDICARE | END 2023-04-24 11:51 | disposition critical access hospital (66) | LOC: EMS 11:50 | DX: R41.89 Other symptoms and signs involving cognitive functions and awareness (principal); R47.1 Dysarthria and anarthria; R29.810 Facial weakness; I48.91 Unspecified atrial fibrillation | CPT/HCPCS: A0425; A0427 ==

== ENCOUNTER 2023-04-24 12:18 | Emergency (ER) | payer MEDICARE ==
--- NOTE | 2023-04-24 12:26 | ED Physician Documentation ---
PD HPI FOCAL NEURO - Stated complaint Stated Complaint: R SIDE WEAKNESS - History obtained from History obtained from: Patient, EMS - Additional information Additional information: 82-year-old gentleman with history of A-fib on Eliquis presents for the evaluation of strokelike symptoms. He also has a history of CAD, TAVR and is followed at [facility]. He was doing zeyad chi with his at 10 AM when he had to sit down which is very atypical and then she found him to be confused and noted to have a right facial droop. EMS reports that his blood sugar was in the 120 range and he has improved slightly on transport here. PD PAST MEDICAL HISTORY - Past Medical History Cardiovascular: High cholesterol, Coronary artery disease, MD, Atrial fibrillation, Valve disorder Respiratory: None Neuro: None Endocrine/Autoimmune: None GI: GERD : Benign prostate hypertrophy HEENT: Chronic hearing loss Psych: None Musculoskeletal: Chronic back pain Derm: None - Past Surgical History Past Surgical History: Yes Ortho: Knee replacement, Spine surgery - Present Medications Home Medications: Ambulatory Orders Medication Instructions Recorded Confirmed Apixaban [Eliquis] 2.5 mg PO BID 11/20/20 10/21/22 Atorvastatin Calcium 80 mg PO HS 11/20/20 10/21/22 Ferrous Sulfate 325 mg PO DAILY 11/20/20 10/21/22 Furosemide [Lasix] 40 mg PO DAILY 11/20/20 10/21/22 Spironolactone [Aldactone] 25 mg PO DAILY 11/20/20 10/21/22 Metoprolol Succinate [Toprol Xl] 25 mg PO BID 10/21/22 10/21/22 - Allergies Allergies/Adverse Reactions: Allergies Allergy/AdvReac Type Severity Reaction Status Date / Time No Known Drug Allergies Allergy Verified 04/24/23 12:23 - Social History Does the pt smoke?: No Smoking Status: Former smoker Does the pt drink ETOH?: Yes Does the pt have substance abuse?: No - Immunizations Immunizations are current?: Yes - POLST Patient has POLST: No PD ED PE NORMAL - Vitals Vital signs reviewed: Yes - General General: Other (He is alert but oriented only to person) - HEENT HEENT: PERRL, Other (Does not follow commands well enough to do extraocular movements) - Neck Neck: Supple, no meningeal sign, No bony TTP - Cardiac Cardiac: Other (Irregularly irregular) - Respiratory Respiratory: No respiratory distress, Clear bilaterally - Abdomen Abdomen: Non tender - Extremities Extremities: No edema, No calf tenderness / cord - Neuro Eye Opening: Spontaneous Motor: Localizes to Pain Verbal: Confused GCS Score: 13 NIHSS - Time Time: 12:18 - Level of Consciousness Level of consciousness: (0) Alert, Keenly responsive LOC Questions: (2) Answers neither correct LOC Commands: (1) Performs one correctly - Gaze Best Gaze: (0) Normal - Visual Visual: (0) No loss (Marking is 0 as he does not seem to follow commands well enough to test, that says he does respond to threat on either side) - Facial Palsy Facial Palsy: (2) Partial paralysis (Right side) - Motor Arms (both separate) Motor Arm (right): (0) No drift (Interestingly, there is no drift, but initially when I asked him to raise both arms he only raises the left.) Motor Arm (left): (0) No drift - Motor Legs (both separate) Motor Leg (right): (0) No drift Motor Leg (left): (0) No drift - Limb Ataxia Limb Ataxia: (0) Absent (Unable to cooperate so marking as 0) - Sensory Sensory: (0) Normal - Best Language Best Language: (2) Severe aphasia - Dysarthria Dysarthria: (0) Normal - Extinction and Inattention (formally neg Extinction and inattention: (0) No abnormality - Total Score/Results Total Score/Result: 7 Results - Vitals Vitals: Vital Signs - 24 hr 04/24/23 04/24/23 04/24/23 12:23 12:29 12:59 Temperature 36.8 C 36.5 C Heart Rate 89 100 112 H Respiratory 18 24 22 Rate Blood Pressure 129/100 H 137/100 H 133/100 H O2 Saturation 96 96 94 04/24/23 04/24/23 04/24/23 13:29 13:30 14:00 Temperature Heart Rate 93 94 103 H Respiratory 22 20 22 Rate Blood Pressure 149/109 H 140/100 H 138/100 H O2 Saturation 94 94 94 04/24/23 04/24/23 04/24/23 14:30 15:00 15:30 Temperature 36.8 C Heart Rate 102 H 88 100 Respiratory 24 21 16 Rate Blood Pressure 138/110 H 144/96 H 150/100 H O2 Saturation 94 92 98 04/24/23 04/24/23 04/24/23 16:00 16:01 16:30 Temperature 36.6 C Heart Rate 112 H 92 110 H Respiratory 20 24 Rate Blood Pressure 125/92 H 136/100 H O2 Saturation 98 100 Oxygen O2 Source Mechanical ventilator - EKG (time done) 1300 EKG releavant findings:: EKG personally interpreted by author of this note. Relevant findings are: Rate: Rate (enter#) (97) Rhythm: Atrial fibrillation [place]: LAD QRS: Normal Ischemia: Non specific changes Computer interpretation: Agree with computer 1514 EKG releavant findings:: EKG personally interpreted by author of this note. Relevant findings are: Rate: Rate (enter#) (128) Rhythm: Atrial fibrillation (w frequent pvcs) [place]: LAD QRS: Normal Ischemia: ST depression (lateral), Non specific changes Compare to prior EKG: Changed from prior EKG Computer interpretation: Agree with computer - Labs Labs: Laboratory Tests 04/24/23 04/24/23 04/24/23 12:33 12:33 12:33 WBC 8.4 RBC 4.10 L Hgb 13.8 L Hct 42.1 MCV 102.7 H MCH 33.7 H MCHC 32.8 RDW 13.4 Plt Count 120 L MPV 11.7 H Neut # (Auto) 6.4 Lymph # (Auto) 1.1 L Anson # (Auto) 0.8 Eos # (Auto) 0.1 Baso # (Auto) 0.0 Absolute Nucleated RBC 0.00 Nucleated RBC % 0.0 PT 14.1 H INR 1.3 H Bld Gas Analysis Time Sample Site ABG pH ABG pCO2 ABG pO2 ABG HCO3 ABG Total CO2 ABG O2 Saturation ABG Base Excess Iraj Test Respiration Rate O2 Delivery Device Vent Mode Tidal Volume PEEP Sodium 139 Potassium 4.2 Chloride 106 Carbon Dioxide 27 Anion Gap 6.0 BUN 16 Creatinine 1.1 Estimated GFR (MDRD) 64 L Glucose 119 H Calcium 10.0 Magnesium Total Bilirubin 0.6 AST 27 ALT 30 Alkaline Phosphatase 57 Troponin I High Sens Total Protein 7.2 Albumin 4.3 Globulin 2.9 Albumin/Globulin Ratio 1.5 Lipase 85 H SARS-CoV-2 (PCR) 04/24/23 04/24/23 04/24/23 15:32 15:55 16:20 WBC RBC Hgb Hct MCV MCH MCHC RDW Plt Count MPV Neut # (Auto) Lymph # (Auto) Anson # (Auto) Eos # (Auto) Baso # (Auto) Absolute Nucleated RBC Nucleated RBC % PT INR Bld Gas Analysis Time 1630 Sample Site ABG pH 7.37 ABG pCO2 46 H ABG pO2 112 H ABG HCO3 25.6 ABG Total CO2 27.0 ABG O2 Saturation 98 ABG Base Excess -0.1 Iraj Test POSITIVE Respiration Rate 18 O2 Delivery Device VENTILATOR Vent Mode SIMV Tidal Volume 500 PEEP 5 Sodium 138 Potassium 4.1 Chloride 105 Carbon Dioxide 19 L Anion Gap 14.0 H BUN 16 Creatinine 1.2 Estimated GFR (MDRD) 58 L Glucose 146 H Calcium 9.8 Magnesium 1.9 Total Bilirubin AST ALT Alkaline Phosphatase Troponin I High Sens 21.2 H* Total Protein Albumin Globulin Albumin/Globulin Ratio Lipase SARS-CoV-2 (PCR) NOT DETECTED - Rads (name of study) CT/CTA Head Relevant Findings:: Final report received, EMP independent interpretation of test Chest x-ray showing shallow placement of endotracheal tube and advanced by the RT. Relevant Findings:: Final report received, EMP independent interpretation of test Procedures - Intubation - Major Provider: Emergency physician Medications: Propofol (100mg), Succinylcholine (200mg) Blade: Glidescope Tube: Size-enter number (8.0), Cuffed, Marked at teeth-enter cm (22) Route: Oral Confirmation: Direct visualization, Bilateral breath sounds, End tidal CO2 Complications: No compications PD Medical Decision Making - ED course Complexity details: reviewed results (CBC showing mild macrocytic anemia, INR mildly elevated at 1.3 likely related to DOAC use, CMP unremarkable) ED course: At approximately 12:40 PM the is at the bedside. Confirms that he has been compliant with Eliquis. She states the time of onset was more like 1030 this morning. Discussed with her that he is probably not a tPA candidate due to the anticoagulation. That said he may still be an LVO retrieval candidate. 12:50 PM, spoke with Dr. Duran, telestroke neurologist who will review his images and call me back. Radiologist did call me at 1:08 PM. He is reading the noncontrast head CT. He notes that there is calcification in the basal ganglia which is somewhat asymmetric. He doubts that this represents hemorrhage but cannot be ruled out. I do not think this represents hemorrhage as the area of calcification/hypodensity is too small to explain his examination. 1:15 PM: Dr. Duran is finished his evaluation, agrees not a tPA candidate. Has looked at the CTAs and does not see an LVO. Has examined the patient and feels he is improving with NIH stroke scale at this time of 2. I will call him back when the CT angiography reads are completed and he gave me his phone number: [phone]. MRI ordered. Dr. Duran does not feel like he needs an inpatient echo as he is anticoagulated. 1:35 PM: Reviewed CT angiography. There is mod stenosis of the right carotid which would not explain his symptoms. Otherwise there is no vascular disease. Dr. Duran updated and agrees with MRI and observation. 3:08 PM: He was being prepped for MRI and I was called into the room, the patient had a tonic-clonic seizure. On my arrival to the room he was still seizing, he was suctioned and placed on oxygen. He started to come out of it and it was a fairly classic tonic-clonic seizure. not at the bedside at this time. I had called for Ativan but since he was coming out of the seizure canceled it and elected to load him with Keppra. 3:22 PM: He is emerging from his postictal state but is quite agitated so we did go ahead and give him 2 mg of Ativan IV. now at the bedside and updated. 3:30 PM: Despite the Ativan he is still quite agitated, but also not responsive. at the bedside confirms full CODE STATUS and decision to intubate was made. 4:30 PM: Accepted by Dr. Aaliyah Cheung at [facility] ICU. 5:19 PM. We are having trouble finding transportation for the gentleman, it is too windy for helicopter to fly. We are working with our local EMS agency but they do not have the capacity immediately to take him. He did drop his blood pressure briefly while on propofol and the RN decrease the dose but he is somewhat agitated so I am ordering a liter of crystalloid and a fentanyl drip in addition. - Critical Care Time(min): 65 Time Includes: Direct patient care, Review records, Reassess patient, Document care, Coordinate care, Medical consult, Family consult for tx dec Data interpretation: Labs, Pulse ox Procedures included in critical care time: Peripheral IV Procedures excluded from critical care time: Intubation, EKG Departure - Departure Disposition: 02 Transfer Acute Care Hosp Clinical Impression: Seizure Cerebrovascular accident (CVA) Qualifiers: CVA mechanism: unspecified Qualified Code(s): I63.9 - Cerebral infarction, unspecified Atrial fibrillation Qualifiers: Atrial fibrillation type: unspecified Qualified Code(s): I48.91 - Unspecified atrial fibrillation Altered mental status Qualifiers: Altered mental status type: coma Coma depth: [place] coma 3-8 Coma timing: unspecified coma timing Qualified Code(s): R40.2430 - [place] coma scale score 3-8, unspecified time Condition: Critical
[2023-04-24 12:43] LABS: BASOPHILS % (AUTO) 0.4 %; EOSINOPHILS # (AUTO) 0.1 10^3/uL (0.0-0.7); EOSINOPHILS % (AUTO) 0.8 %; HCT - HEMATOCRIT 42.1 % (42.0-52.0); HGB - HEMOGLOBIN 13.8 g/dL (14.0-18.0); LYMPHOCYTES # (AUTO) 1.1 10^3/uL (1.5-3.5); LYMPHOCYTES % (AUTO) 13.4 %; MEAN CORPUSCULAR HEMOGLOBIN 33.7 pg (27.0-31.0); MEAN CORPUSCULAR HGB CONC 32.8 g/dL (32.0-36.0); MEAN CORPUSCULAR VOLUME 102.7 fL (80.0-94.0); MEAN PLATELET VOLUME 11.7 fL (7.4-11.4); MONOCYTES # (AUTO) 0.8 10^3/uL (0.0-1.0); MONOCYTES % (AUTO) 9.2 %; NEUTROPHILS # (AUTO) 6.4 10^3/uL (1.5-6.6); NEUTROPHILS % (AUTO) 75.8 %; PLT - PLATELET COUNT 120 10^3/uL (130-450); RED CELL DISTRIBUTION WIDTH 13.4 % (12.0-15.0); WHITE BLOOD COUNT 8.4 x10^3/uL (4.8-10.8)
[2023-04-24 12:47] LABS: INR 1.3 (0.8-1.2); PT - PROTHROMBIN TIME 14.1 secs (9.9-12.6)
[2023-04-24 12:56] LABS: ALBUMIN 4.3 g/dL (3.2-5.5); ALBUMIN/GLOBULIN RATIO 1.5 (1.0-2.2); BILIRUBIN,TOTAL 0.6 mg/dL (0.2-1.0); CREATININE 1.1 mg/dL (0.6-1.3); POTASSIUM 4.2 mmol/L (3.5-4.5); TOTAL PROTEIN 7.2 g/dL (6.4-8.9)
[2023-04-24] MEDS ORDERED: iohexoL-300 100 ML VIAL IVP ONE (12:59)
--- NOTE | 2023-04-24 13:11 | CT Report ---
PROCEDURE: Head W/O Stroke Protocol INDICATIONS: Neuro deficit, acute, stroke suspected TECHNIQUE: Noncontrast 4.5 mm thick angled axial sections acquired from the foramen magnum to the vertex, with c oronal reformats. For radiation dose reduction, the following was used: automated exposure control, adjustment of mA and/or kV according to patient size. COMPARISON: None. FINDINGS: Image quality: Excellent. CSF spaces: Basal cisterns are patent. No extra-axial fluid collections. Ventricles are normal in size and shape. Brain: No midline shift. No intracranial masses or hemorrhage. Small stipulated densities within th e right basal ganglia with a linear increased density within left basal ganglia. Clark-white matter in terface is normal. Skull and face: Calvarium and visualized facial bones are intact, without suspicious lesions. Sinuses: Visualized sinuses and mastoids are clear. IMPRESSION: Small densities of the basal ganglia are highly favored to represent senescent calcifications however this may also represent tiny intraparenchymal hemorrhage. Findings were discussed with ordering provider on 04/24/2023 at 12:08 PM AK time . This study fulfills neurological imaging criteria for inclusion or exclusion of acute stroke therapie s based on available published neurological imaging guidelines. Reviewed by: Edwin Rob MD on 04/24/2023 12:10 PM AKST Approved by: Edwin Rob MD on 04/24/2023 12:10 PM AKST Station ID: [id number]
--- NOTE | 2023-04-24 13:20 | CT Report ---
PROCEDURE: CT Angio Head/Neck INDICATIONS: CVA sx (language, confusion, R deficits) TECHNIQUE: After the administration of intravenous contrast, 1 mm thick sections acquired from the aortic arch t hrough the [place] of [place]. 3-dimensional xyrcgvc-llqttnqmr-[id number] (MIP) and/or volume renderin g reformats were acquired of the central intracranial vasculature and neck separately. For radiation dose reduction, the following was used: automated exposure control, adjustment of mA and/or kV acco rding to patient size. COMPARISON: Head CT without, 02/22/2023. FINDINGS: Image quality: Diagnostic. HEAD CT: CSF Spaces: Basal cisterns are patent. No extra-axial fluid collections. Ventricles are normal in size and shape. Brain: The brain is within normal limits for age and scanning technique. Skull and face: Calvarium and visualized facial bones appear intact, without suspicious lesions. Sinuses: Visualized sinuses and mastoids are clear. HEAD CT ANGIOGRAPHY: Anterior circulation: Intracranial internal carotid arteries are normal in size and flow. Calcified plaques are seen at the cavernous segment of the internal carotid arteries bilaterally. The flow with in the paired anterior cerebral arteries is normal and symmetric. The flow within the middle cerebra l arteries is normal and symmetric. The anterior communicating artery is seen. No aneurysms are see n. Posterior circulation: Visualized portions of the vertebral arteries demonstrate normal caliber, and join to form a normal appearing basilar artery. Flow within the posterior cerebral arteries is norm al and symmetric. No aneurysms are seen. NECK CT ANGIOGRAPHY: Carotid system: The great vessels demonstrate a conventional anatomy as they arise from the aortic a [facility]. The origins of the common carotid arteries appear patent. The common carotid arteries demonstr ate normal caliber and courses. The bifurcation regions are both widely patent. There are calcified plaques at the carotid bifurcations bilaterally. There is moderate stenosis of the proximal right int ernal carotid artery at the bifurcation (possibly 40%). No significant left internal carotid stenosis The internal carotid arteries demonstrate normal calibers and courses. Posterior circulation: The origins of the vertebral arteries both appear widely patent. The more hahn perior extracranial portions of both vertebral arteries also demonstrate normal courses and calibers. Ossified plaques in distal vertebral arteries bilaterally at the skull base. Vertebral arteries maxwell n to form a normal appearing basilar artery. Soft tissues: Visualized neck soft tissues demonstrate no suspicious abnormalities. The cervical ly mph nodes are seen bilaterally, likely reactive. Bones: No suspicious bony lesions. There is moderate to severe degenerative disc and facet disease. Grade 1 anterolisthesis of C4 on C5. IMPRESSION: 1. No acute intracranial abnormalities. 2. No high-grade stenosis or occlusion in anterior or posterior cervical circulations. 3. 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 No significant stenosis in the left carotid ar avni. 4. No high-grade stenosis in vertebral arteries bilaterally The estimate of stenosis included in the report of the imaging study was calculated using the NASCET method Reviewed by: Susan Cifuentes MD on 04/24/2023 1:19 PM PST Approved by: Susan Cifuentes MD on 04/24/2023 1:19 PM PST Station ID: [id number]
[2023-04-24] MEDS ORDERED: LORazepam 2 MG/ML VIAL ONE (15:07)
[2023-04-24] MEDS ORDERED: levETIRAcetam INJ 1,000 MG in SODIUM CHLORIDE 0.9% 100ML 100 ML IV STA ×2 (15:09→16:29)
[2023-04-24] MEDS ORDERED: LORazepam 2 MG/ML VIAL IVP STA (15:22)
[2023-04-24] MEDS ORDERED: SUCCINYLCHOLINE 200 MG/10 ML VIAL IVP STA (15:30)
[2023-04-24] MEDS ORDERED: PROPOFOL 1000 MG/100 ML 1,000 MG/100 ML BOTTLE IV ONE (15:31)
[2023-04-24] MEDS ORDERED: PROPOFOL 200 MG/20 ML VIAL IVP ONE (15:32)
[2023-04-24] MEDS ORDERED: SUCCINYLCHOLINE 200 MG/10 ML VIAL ONE (15:32)
[2023-04-24] MEDS ORDERED: PROPOFOL 200 MG/20 ML VIAL IVP STA (15:44)
[2023-04-24] MEDS: PROPOFOL 1000 MG/100 ML 1,000 MG/100 ML BOTTLE IV STA ×2 (15:47→19:47)
[2023-04-24] MEDS: PROPOFOL 200 MG/20 ML VIAL IVP STA ×2 (15:47→15:49)
[2023-04-24 15:56] LABS: CALCIUM 9.8 mg/dL (8.5-10.3); CREATININE 1.2 mg/dL (0.6-1.3); MAGNESIUM 1.9 mg/dL (1.7-2.3); POTASSIUM 4.1 mmol/L (3.5-4.5)
--- NOTE | 2023-04-24 16:01 | XRAY Report ---
PROCEDURE: Chest for Line Placement INDICATIONS: intubated TECHNIQUE: One view of the chest was acquired. COMPARISON: None. FINDINGS: Surgical changes and devices: ET tube is located within the superior thoracic inlet, 9.2 cm from the mikhail. Consider advancing. Enteric tube courses down the esophagus with the tip within the esophagus. Valve prosthesis is presen t. No central line is identified. Lungs and pleura: Prominent interstitial markings without concerning consolidation pleural effusion or pneumothorax. Mediastinum: Mediastinal contours appear normal. Heart size is normal. Bones and chest wall: No suspicious bony lesions. Overlying soft tissues appear unremarkable. IMPRESSION: ET tube is located within the superior thoracic inlet, consider advancement. Enteric tube is within the esophagus, recommend advancement Reviewed by: Edwin Rob MD on 04/24/2023 2:59 PM [facility] Approved by: Edwin Rob MD on 04/24/2023 2:59 PM [facility] Station ID: [id number]
[2023-04-24 16:15] LABS: TROPONIN I HIGH SENSITIVITY 21.2 ng/L (2.3-19.7)
[2023-04-24] MEDS ORDERED: ASPIRIN 300 MG SUPP PR STA (16:31)
[2023-04-24 16:37] LABS: ABG BASE EXCESS -0.1 mmol/L (-2.0-3.0); ABG HCO3 25.6 mmol/L (22.0-26.0); ABG OXYGEN SATURATION 98 % (94-98); ABG PCO2 46 mmHg (34-45); ABG PH 7.37 (7.35-7.45); ABG PO2 112 mmHg (80-100); ALLEN TEST POSITIVE
[2023-04-24 16:38] LABS: ABG MODE OF VENTILATION SIMV
[2023-04-24 16:39] LABS: ABG RESPIRATORY RATE 18 b/min
[2023-04-24] MEDS ORDERED: SODIUM CHLORIDE 0.9% 1,000 ML IV STA (17:19)
[2023-04-24] MEDS ORDERED: fentaNYL 2,500 MCG in SODIUM CHLORIDE 0.9% 200 ML IV STA (17:19)
[2023-04-24 19:31] VITALS: BP 125/85; O2SAT 100
[2023-04-24] MEDS ORDERED: PROPOFOL 1000 MG/100 ML 1,000 MG/100 ML BOTTLE IV STA (19:40)
== END 2023-04-24 20:10 | disposition short-term general hospital (02) ==
LOC: EDUNIT# → ED 12:18
DX: I63.9 Cerebral infarction, unspecified (principal); R29.707 NIHSS score 7; R56.9 Unspecified convulsions; I48.91 Unspecified atrial fibrillation; R40.2430 Glasgow coma scale score 3-8, unspecified time; E78.00 Pure hypercholesterolemia, unspecified; I25.2 Old myocardial infarction; Z79.01 Long term (current) use of anticoagulants; Z79.899 Other long term (current) drug therapy; Z87.891 Personal history of nicotine dependence; Z11.52 Encounter for screening for COVID-19
CPT/HCPCS: 31500; 36415; 36600; 80048; 80053; 82803; 83690; 83735; 84484; 85025; 85610; 87635; 93005; 94002; 99291